=== PATIENT | male | born 1950 | race African-American/Black ===

== ENCOUNTER 2018-10-31 14:06 | Emergency (ER) | payer SELFPAY ==
--- NOTE | 2018-10-31 14:27 | RAD ---
EXAM: XR Shoulder Rt 3 View STANDARD PROVIDED CLINICAL HISTORY: Right shoulder pain, joint pain for 4 days. COMPARISON: None FINDINGS: There is no evidence of a fracture or dislocation. The acromioclavicular and coracoclavicular distanc es are within normal limits. No other osseous abnormality. IMPRESSION: No acute osseous abnormalities right shoulder.
[2018-10-31] MEDS ORDERED: Ketorolac Tromethamine 30 MG/ML VIAL ONE (15:20)
== END 2018-10-31 15:40 | disposition home or self-care (01) ==
LOC: ERS 14:06
DX: M25.511 Pain in right shoulder (principal); E11.9 Type 2 diabetes mellitus without complications; E78.5 Hyperlipidemia, unspecified; I10 Essential (primary) hypertension; F17.210 Nicotine dependence, cigarettes, uncomplicated
CPT/HCPCS: 96372; J1885

== ENCOUNTER 2020-10-24 12:51 | Emergency (ER) | payer SELFPAY ==
[2020-10-24] MEDS ORDERED: Ketorolac Tromethamine 30 MG/ML VIAL ONE (14:33)
== END 2020-10-24 16:30 | disposition home or self-care (01) ==
LOC: ERS 12:51
DX: M10.9 Gout, unspecified (principal); E11.9 Type 2 diabetes mellitus without complications; E78.5 Hyperlipidemia, unspecified; I10 Essential (primary) hypertension; M06.9 Rheumatoid arthritis, unspecified; F17.210 Nicotine dependence, cigarettes, uncomplicated
CPT/HCPCS: 96372; 99283; J1885

== ENCOUNTER 2025-02-05 14:45 | Emergency (ER) | payer MEDICARE, SELFPAY ==
[2025-02-05 15:49] LABS: #Basophils 0.03 10x3/uL (0.0-0.2); #Eosinophils 0.05 10x3/uL (0.0-0.7); #Monocytes 0.47 10x3/uL (0.11-0.59); #Neutrophils 3.59 10x3/uL (1.40-6.50); %Basophils 0.6 % (0.0-1.0); %Eosinophils 1.0 % (0.0-10.0); %Lymphocytes 13.7 % (21.0-51.0); %Monocytes 9.8 % (0.0-10.0); %Neutrophils 74.5 % (42.0-75.0); Hematocrit 28.0 % (42.0-52.0); Hemoglobin 8.6 g/dL (14.0-18.0); Mean Corpuscular Hemoglobin 22.3 pg (27.0-31.0); Mean Corpuscular Volume 72.5 fL (78.0-98.0); Platelet Count 114 10x3/uL (130-400); Red Blood Cell (RBC) Count 3.86 mill/uL (4.70-6.10); White Blood Cell (WBC) Count 4.82 10x3/uL (4.8-10.8)
[2025-02-05 15:53] LABS: INR-International Normal Ratio 1.5; Prothrombin Time 18.0 sec (12.0-14.7)
[2025-02-05 15:54] LABS: ALT (SGPT) 19 U/L (Less than 45); AST (SGOT) 20 U/L (11-34); Albumin 3.3 g/dL (3.1-4.5); Alkaline Phosphatase 69 U/L (40-110); Anion Gap 11 mmol/L (10-20); BUN (Urea Nitrogen) 11 mg/dL (8.4-25.7); Bilirubin, Total 0.8 mg/dL (0.3-1.2); Calc. Creatinine Clearance 0 mL/min (70-130); Calcium 8.3 mg/dL (7.8-10.44); Carbon Dioxide 24 mmol/L (23-31); Chloride 110 mmol/L (98-107); Globulin 3.5 g/dL (2.4-3.5); Glucose 112 mg/dL (83-110); Magnesium 1.8 mg/dL (1.6-2.6); PTT 29.8 sec (22.9-36.1); Potassium 3.9 mmol/L (3.5-5.1); Sodium 141 mmol/L (136-145)
[2025-02-05 15:57] LABS: Troponin I Less than 0.010 ng/mL (< 0.028)
[2025-02-05] MEDS ORDERED: Furosemide 40 MG (4 mL) VIAL ONE (16:47)
== END 2025-02-05 18:10 | disposition home or self-care (01) ==
LOC: ERS 14:45
DX: R60.9 Edema, unspecified (principal); E11.9 Type 2 diabetes mellitus without complications; I10 Essential (primary) hypertension; F17.210 Nicotine dependence, cigarettes, uncomplicated
CPT/HCPCS: 71045; 80053; 83735; 83880; 84484; 85025; 85610; 85730; 93005; 96374; 99284; J1940